=== PATIENT | female | born 1945 | race African-American/Black ===

== ENCOUNTER 2018-01-22 18:15 | Emergency (ER) | payer OTHER ==
[~2018-01-22] VITALS: Ht 170.2 cm; Wt 57.1 kg
[2018-01-22 18:19] VITALS: BP 151/93; PULSE 72; TEMP 36.6; O2SAT 97; Ht 170.2 cm; Wt 57.1 kg
[2018-01-22] MEDS ORDERED: MULT-513 PO (18:45)
[2018-01-22] MEDS ORDERED: ACET-1256 PO (18:45)
[2018-01-22] MEDS ORDERED: B-COTAB18 PO (18:45)
--- NOTE | 2018-01-22 23:49 | EMERGENCY ROOM VISIT NOTE ---
History Report prepared by Jhonny: Eric Roque Under the Supervision of: Dr. Del Matthews M.D. First contact with patient: 18:28 Chief Complaint: SWELLING TO EXTREMITY Stated Complaint: SWOLLEN FEET/ANKLES, STIFFNESS/SORENESS IN JOINTS History of Present Illness The patient is a 72 year old female who presents to the Emergency Room with complaints of constant swelling of the feet and ankles beginning a couple of weeks ago. The patient reports that there is also swelling in her elbows, hands , and wrists. She also notes stiffness and soreness in her joints, and notes an intermittent small bump in the right side of her neck. She states that her symptoms might have improved temporarily after drinking a soda. The patient reports that she has been urinating more frequently than usual. The patient notes that she has been keeping busy and goes to work. She states that her symptoms are not worsened with lying down. She notes that she has high salt intake, including potato chips, pretzels, and irish fries. The patient's daughter notes that she developed similar symptoms to the patient a couple of days after the patient's onset. The patient reports that she has not regularly seen a doctor for the past 20 years. She denies taking long-term prescriptions or past medical history. The patient also denies any significant family medical history. She reports that she lives in [place], and has been visiting in the [place] area for the past two weeks and the next two weeks. Pt denies LOC, headache, fevers, chills, diaphoresis, visual changes, neck pain , chest pain, breathing difficulties, nausea, vomiting, abdominal pain, back pain, melena, hematochezia, numbness, weakness, rash, or other complaints. Source of History: patient, family (daughter) Onset: a couple weeks ago Position: ankle (bilateral), foot (bilateral) Quality: other (swelling) Timing: constant Modifying Factors (Relieving): other (soda) Associated Symptoms: + urinary symptoms (frequency) Note: small intermittent bump in the right side of the neck Review of Systems See HPI for pertinent positives and negatives. A total of ten systems were reviewed and were otherwise negative. Past Medical & Surgical Medical Problems: (1) No significant past medical history Family History Patient reports no known family medical history. Social History Smoking Status: Never Smoker Current/Historical Medications Scheduled B-Complex Vitamins (Vitamin B Complex), 1 TAB PO DAILY Multivitamins/Minerals (Mvi With Minerals), 1 TAB PO DAILY Scheduled PRN Acetaminophen (Tylenol), 1,000 MG PO Q6 PRN for Pain Allergies Coded Allergies: No Known Allergies (Unverified , 01/22/18) Physical Exam Vital Signs Date Time Temp Pulse Resp B/P (MAP) Pulse Ox O2 Delivery O2 Flow Rate FiO2 01/22/18 18:19 36.6 72 16 151/93 97 Room Air Physical Exam GENERAL: Awake, alert, well-appearing, in no distress HENT: Normocephalic, atraumatic. Oropharynx unremarkable. EYES: Normal conjunctiva. Sclera non-icteric. NECK: Supple. No nuchal rigidity. FROM. No masses. RESPIRATORY: Clear to auscultation. No wheezes. No rales. Normal respiratory effort. CARDIAC: Normal rate. Normal rhythm. No murmurs. No rubs. Extremities warm and well perfused. Pulses equal. No JVD. GI: Soft, non-distended. No tenderness to palpation. No rebound or guarding. No masses. RECTAL: Deferred. MUSCULOSKELETAL: Atraumatic. Chest examination reveals no tenderness. The back is symmetrical on inspection without obvious abnormality. There is no CVA tenderness to palpation. No joint edema. LOWER EXTREMITIES: Calves are equal size bilaterally and non-tender. 2+ pedal edema. No discoloration. NEURO: Normal sensorium. No sensory or motor deficits noted. SKIN: No rash or jaundice noted. Medical Decision & Procedures ED Course 1843: The patient was evaluated in room C6. A complete history and physical exam was performed. I discussed results and discharge instructions: she verbalized understanding and agreement. The patient is ready for discharge. Medical Decision Patient presented to the emergency department complaining of lower extremity edema. Etiologies such as lymphedema, idiopathic, DVT, joint effusion, infection, trauma, muscular,CHF, as well as others were entertained. She has not seen a doctor in over 20 years. I did perform a physical examination as documented above. I had a very long discussion with the patient and her daughter about the need for a workup and also the establishment of primary care. The patient has family in this area but lives in [place]. She asked if we would be her primary physician and I advised her that this is the emergency department and we did not provide ongoing primary care here. She would be best served by finding a family doctor or district customs director in her local area in [place] so that she does not drive over 4 hours back to this area. The patient and daughter were in agreement. I did want to perform some baseline blood work, ECG and imaging for the patient. There are multiple etiologies for her lower extremity edema and aches and pains. The patient stated that she cannot drive at night and was concerned about the setting sun. She requested to be discharged and states that she will come back to the ER tomorrow morning for a recheck. I advised her that the evaluation is not complete at this time and that there are multiple possibilities for her symptoms and the fact that she had not had any primary care in the last 20 years is putting her health at risk. I gave my usual and customary discussion regarding this issue. The patient and daughter indicated understanding. I did review the fact that the patient's blood pressure was moderately elevated and this is a problem. The patient was pleased with the evaluation here and feels comfortable with going home resting, minimizing salt intake and return tomorrow for completion of the initial evaluation. She will also start to investigate primary care. By the evaluation outlined above other emergent etiologies such as those listed in the differential, as well as others, were deemed relatively unlikely. The patient was educated about the findings as listed above. All questions were answered and the patient was pleased with the treatment. Return instructions were outlined and the patient was discharged in stable condition. Medication Reconcilliation Current Medication List: was personally reviewed by me (No current prescriptions.) Blood Pressure Screening Patient's blood pressure: Elevated blood pressure referred to a family doctor and to ER tomorrow Impression Primary Impression: Lower extremity edema Scribe Attestation The scribe's documentation has been prepared under my direction and personally reviewed by me in its entirety. I confirm that the note above accurately reflects all work, treatment, procedures, and medical decision making performed by me. Departure Information Dispostion Home / Self-Care Referrals No Doctor, Assigned (PCP) Forms HOME CARE DOCUMENTATION FORM, IMPORTANT VISIT INFORMATION, WORK / SCHOOL INSTRUCTIONS Patient Instructions My [facility] [employer] Additional Instructions Decrease the intake of salty foods in your diet. Rest. Elevate your legs. Talk to your family and friends about a local doctor in your area of [place]. Call the office and establish primary care. It is very important to your overall health and well-being to have a family doctor and regular checkups. Your evaluation is still not complete. Blood work and other testing is necessary to evaluate your problem, especially since you have not seen a doctor in over 20 years. As discussed, return tomorrow morning to the emergency department for additional evaluation regarding the leg swelling. Your blood pressure was noted to be elevated. This can be a serious issue if left unchecked. Blood pressure elevations can also be a result of problems that cause leg swelling or blood pressure can contribute to leg swelling problems. Return to the emergency department immediately for difficulty breathing, chest pain, fevers, severe pain, or as needed.
== END 2018-01-22 19:25 | disposition home or self-care (01) ==
LOC: C.EDB 18:17 → C.EDC 19:25
DX: R60.0 Localized edema (principal); R03.0 Elevated blood-pressure reading, without diagnosis of hypertension; Z79.899 Other long term (current) drug therapy